=== PATIENT | female | born 1985 | race Caucasian/White ===

== ENCOUNTER 2019-06-29 22:00 | Inpatient (IN) | payer OTHER ==
[2019-06-29] MEDS ORDERED: ACETAMINOPHEN TAB 500 MG TAB PO STA (22:10)
[2019-06-29] MEDS ORDERED: IBUPROFEN 600 MG TAB PO STA (22:10)
[2019-06-29] MEDS ORDERED: IPRATROPIUM-ALBUTEROL 3 ML NEB INHALATION STA (22:11)
--- NOTE | 2019-06-29 22:13 | ED ---
SOB HPI - General Chief Complaint: Shortness of Breath Stated Complaint: EMILE Time Seen by Provider: 06/29/19 22:10 Source: EMS Mode of arrival: EMS Limitations: no limitations - History of Present Illness Initial Comments: Dorcas is a 33 yo female past medical history of opiate and amphetamine abuse who presents to the emergency department stay from [facility] facility for evaluation of pleuritic right-sided chest pain and upper respiratory i nfection. Patient was diagnosed with pneumonia a few days ago, she states that today was her fourth day of his Z-Justice, despite being compliant with his medication she has persistent cough, pleuritic chest pain, shortness of breath, fevers and body aches. - Related Data Home Medications Medication Instructions Recorded Confirmed Acetaminophen [Tylenol] 650 mg PO Q4H PRN 06/29/19 06/29/19 Ibuprofen [Motrin] 600 mg PO Q6HR PRN 06/29/19 06/29/19 Methadone [Dolophine] 103 mg PO DAILY 06/29/19 06/29/19 Mirtazapine [Remeron] 15 - 30 mg PO HS PRN 06/29/19 06/29/19 Multivitamins, Thera [Multivitamin 1 tab PO DAILY 06/29/19 06/29/19 (formulary)] Thiamine [Vitamin B-1] 100 mg PO DAILY 06/29/19 06/29/19 Allergies Allergy/AdvReac Type Severity Reaction Status Date / Time amoxicillin Allergy Rash/Hives Verified 06/29/19 23:32 Review of Systems ROS Statement: Those systems with pertinent positive or pertinent negative responses have been documented in the HPI. ROS Other: All systems not noted in ROS Statement are negative. Past Medical History Past Medical History: Asthma History of Any Multi-Drug Resistant Organisms: None Reported Past Surgical History: Tubal Ligation Additional Past Surgical History / Comment(s): lithotripsy, carpal surgery, Past Psychological History: No Psychological Hx Reported Smoking Status: Current every day smoker Past Alcohol Use History: None Reported Past Drug Use History: Methamphetamine, Opiates General Exam - General Exam Comments Initial Comments: Physical Exam GENERAL: Ill appearing HENT: Normocephalic, Atraumatic. EYES: PERRL, EOMI PULMONARY: decreased breath sounds on right wheeze throughout CARDIOVASCULAR: Tachycardic Regular No murmur ABDOMEN: Soft and nontender with normal bowel sounds. SKIN: Skin is clear with no lesions or rashes and otherwise unremarkable. No track jacobs in AC : Deferred NEUROLOGIC: Patient is alert and oriented x3. Moving all extremities spontaneously MUSCULOSKELETAL: Normal extremities with adequate strength and full range of motion. No lower extremity swelling or edema. No calf tenderness. PSYCHIATRIC: Normal psychiatric evaluation. Limitations: no limitations Course Vital Signs 06/29/19 06/29/19 06/29/19 22:02 22:26 22:37 Temperature 102 F H Pulse Rate 110 H 105 H 103 H Respiratory 18 Rate Blood Pressure 135/79 O2 Sat by Pulse 95 Oximetry 06/29/19 06/30/19 23:13 00:10 Temperature 99.2 F 99.6 F Pulse Rate 101 H 107 H Respiratory 18 18 Rate Blood Pressure 120/74 114/68 O2 Sat by Pulse 94 L 95 Oximetry Medical Decision Making - Medical Decision Making Patient was seen and evaluated, vital signs were reviewed, patient is tachypneic tachycardic and febrile with a known pneumonia. Sepsis workup was initiated Influenza swabs are obtained and sent chest x-ray confirms a right-sided pneumonia Labs with anemia, no leukocytosis, mildly elevated creatinine Given the patient's history, persistent tachycardia after antipyretics and fluids. A CT study was ordered to evaluate for any pulmonary emboli Computed tomography scan reveals bilateral pneumonia more prominent on the right than left, lymphadenopathy, no signs of a pulmonary embolism but find patient is ALLERGIC to amoxicillin she will be treated with Levaquin. Patient care was discussed with admitting physician Dr. Barrett Crowley who agrees with plan for admission. - Lab Data Result diagrams: 06/29/19 22:05 06/29/19 22:05 Lab Results 06/29/19 06/29/19 06/29/19 Range/Units 22:05 22:05 22:05 WBC 9.1 (3.8-10.6) k/uL RBC 3.84 (3.80-5.40) m/uL Hgb 10.0 L (11.4-16.0) gm/dL Hct 30.8 L (34.0-46.0) % MCV 80.2 (80.0-100.0) fL MCH 26.1 (25.0-35.0) pg MCHC 32.5 (31.0-37.0) g/dL RDW 14.5 (11.5-15.5) % Plt Count 287 (150-450) k/uL Neutrophils % 79 % Lymphocytes % 13 % Monocytes % 5 % Eosinophils % 2 % Basophils % 0 % Neutrophils # 7.1 (1.3-7.7) k/uL Lymphocytes # 1.2 (1.0-4.8) k/uL Monocytes # 0.5 (0-1.0) k/uL Eosinophils # 0.2 (0-0.7) k/uL Basophils # 0.0 (0-0.2) k/uL Hypochromasia Slight PT (9.0-12.0) sec INR (<1.2) APTT (22.0-30.0) sec Sodium 140 (137-145) mmol/L Potassium 3.8 (3.5-5.1) mmol/L Chloride 99 (98-107) mmol/L Carbon Dioxide 29 (22-30) mmol/L Anion Gap 12 mmol/L BUN 15 (7-17) mg/dL Creatinine 0.76 (0.52-1.04) mg/dL Est GFR (CKD-EPI)AfAm >90 (>60 ml/min/1.73 sqM) Est GFR (CKD-EPI)NonAf >90 (>60 ml/min/1.73 sqM) Glucose 101 H (74-99) mg/dL Plasma Lactic Acid Miguel 1.0 (0.7-2.0) mmol/L Calcium 9.1 (8.4-10.2) mg/dL Total Bilirubin 0.2 (0.2-1.3) mg/dL AST 35 (14-36) U/L ALT 48 (9-52) U/L Alkaline Phosphatase 114 (38-126) U/L Total Protein 7.0 (6.3-8.2) g/dL Albumin 3.8 (3.5-5.0) g/dL Influenza Type A RNA (Not Detectd) Influenza Type B (PCR) (Not Detectd) 06/29/19 06/29/19 Range/Units 22:05 22:36 WBC (3.8-10.6) k/uL RBC (3.80-5.40) m/uL Hgb (11.4-16.0) gm/dL Hct (34.0-46.0) % MCV (80.0-100.0) fL MCH (25.0-35.0) pg MCHC (31.0-37.0) g/dL RDW (11.5-15.5) % Plt Count (150-450) k/uL Neutrophils % % Lymphocytes % % Monocytes % % Eosinophils % % Basophils % % Neutrophils # (1.3-7.7) k/uL Lymphocytes # (1.0-4.8) k/uL Monocytes # (0-1.0) k/uL Eosinophils # (0-0.7) k/uL Basophils # (0-0.2) k/uL Hypochromasia PT 10.4 (9.0-12.0) sec INR 1.0 (<1.2) APTT 29.7 (22.0-30.0) sec Sodium (137-145) mmol/L Potassium (3.5-5.1) mmol/L Chloride (98-107) mmol/L Carbon Dioxide (22-30) mmol/L Anion Gap mmol/L BUN (7-17) mg/dL Creatinine (0.52-1.04) mg/dL Est GFR (CKD-EPI)AfAm (>60 ml/min/1.73 sqM) Est GFR (CKD-EPI)NonAf (>60 ml/min/1.73 sqM) Glucose (74-99) mg/dL Plasma Lactic Acid Miguel (0.7-2.0) mmol/L Calcium (8.4-10.2) mg/dL Total Bilirubin (0.2-1.3) mg/dL AST (14-36) U/L ALT (9-52) U/L Alkaline Phosphatase (38-126) U/L Total Protein (6.3-8.2) g/dL Albumin (3.5-5.0) g/dL Influenza Type A RNA Not Detected (Not Detectd) Influenza Type B (PCR) Not Detected (Not Detectd) - EKG Data -: EKG Interpreted by Me EKG Comments: EKG was obtained due to tachycardia, EKG was obtained at 2253, rate is 106 rhythm is sinus tachycardia, there is a normal axis, there are normal intervals, WV 132, care is 94, QTC is 451 there are no acute ST elevations or depressions no evidence of acute ischemia or infarction. Disposition Clinical Impression: Sepsis, Bilateral pneumonia Disposition: ADMITTED IP TO THIS HOSP Condition: Stable Is patient prescribed a controlled substance at d/c from ED?: No Referrals: None,Stated [Primary Care Provider] - 1-2 days
[2019-06-29] MEDS: SODIUM CHLORIDE 0.9% 500 ML 500 ML IV SCH ×2 (22:16→22:17)
[2019-06-29 22:27] LABS: Basophils % (A) 0 %; Eosinophils # (A) 0.2 k/uL (0-0.7); Eosinophils % (A) 2 %; HCT 30.8 % (34.0-46.0); Hypochromasia Slight; Lymphocytes # (A) 1.2 k/uL (1.0-4.8); Lymphocytes % (A) 13 %; MCH 26.1 pg (25.0-35.0); MCHC 32.5 g/dL (31.0-37.0); MCV 80.2 fL (80.0-100.0); Mean Platelet Volume 6.7; Monocytes # (A) 0.5 k/uL (0-1.0); Monocytes % (A) 5 %; Neutrophils # (A) 7.1 k/uL (1.3-7.7); Neutrophils % (A) 79 %; Platelet Count 287 k/uL (150-450); RBC 3.84 m/uL (3.80-5.40); RDW 14.5 % (11.5-15.5); WBC 9.1 k/uL (3.8-10.6)
[2019-06-29 22:35] LABS: Partial Thromboplastin Time 29.7 sec (22.0-30.0); Prothrombin Time 10.4 sec (9.0-12.0)
[2019-06-29 22:38] LABS: ALT 48 U/L (9-52); AST 35 U/L (14-36); African American GFR (CKD) >90 (>60 ml/min/1.73 sqM); Albumin 3.8 g/dL (3.5-5.0); Alkaline Phosphatase 114 U/L (38-126); Anion Gap 12 mmol/L; Blood Urea Nitrogen 15 mg/dL (7-17); Calcium 9.1 mg/dL (8.4-10.2); Carbon Dioxide 29 mmol/L (22-30); Chloride 99 mmol/L (98-107); Glucose 101 mg/dL (74-99); Potassium 3.8 mmol/L (3.5-5.1); Sodium 140 mmol/L (137-145); Total Bilirubin 0.2 mg/dL (0.2-1.3)
--- NOTE | 2019-06-29 22:47 | XR ---
EXAMINATION TYPE: XR chest 2V DATE OF EXAM: 06/29/2019 COMPARISON: NONE HISTORY: Cough TECHNIQUE: Frontal and lateral views of the chest are obtained. FINDINGS: There is some patchy airspace consolidation right middle lobe. The other lung lindsey are f airly clear of consolidation. There is minimal atelectasis right posterior lung base. Heart size is n ormal. There is no heart failure. There is no pleural effusion. IMPRESSION: There is some right middle lobe pneumonia. Minimal atelectasis right lower lobe.
--- NOTE | 2019-06-29 23:44 | CT ---
EXAMINATION TYPE: CT chest angio for PE DATE OF EXAM: 06/29/2019 COMPARISON: None HISTORY: EMILE CT DLP: 444.8 mGycm Automated exposure control for dose reduction was used. CONTRAST: CT Chest for pulmonary embolism performed with with IV Contrast, patient injected with 90mL mL of Iso diana 370. There are 3-D post processed images. FINDINGS: There is some patchy airspace consolidation right middle lobe and to a lesser extent the right lower lobe. There is a mild infiltrate also in the lingula left upper lobe. There is small right pleural ef fusion. Heart size is normal. There is no pericardial effusion. There are some enlarged mediastinal and bronchial lymph nodes that measure up to 2 cm. Bronchial lymp h nodes are larger on the right side. I see no filling defects in the pulmonary arteries. Bony thorax is intact. There is no compression fracture. The ribs appear intact. IMPRESSION: Bilateral pneumonia that is much worse on the right side. Mediastinal and bronchial adenopathy probab ly due to inflammatory disease. No evidence of pulmonary embolism.
[2019-06-29] MEDS ORDERED: LEVOFLOXACIN 750MG-D5W PMX 750 MG in DEXTROSE/WATER 1 150ML.BAG IVPB STA (23:50)
[2019-06-29] MEDS ORDERED: ONDANSETRON 4 MG/2 ML VIAL IVP PRN (23:51)
[2019-06-29] MEDS ORDERED: ACETAMINOPHEN TAB 325 MG TAB PO PRN (23:51)
[2019-06-29] MEDS ORDERED: NALOXONE 0.4 MG/ML 1 ML VIAL IV PRN (23:51)
[2019-06-29] MEDS ORDERED: IBUPROFEN 400 MG TAB PO PRN (23:51)
[2019-06-30] MEDS: SODIUM CHLORIDE 0.9% 1,000 ML IV SCH ×3 (00:20→20:26)
[2019-06-30] MEDS: SODIUM CHLORIDE 0.9% 500 ML 500 ML IV SCH (00:21)
[2019-06-30] MEDS ORDERED: MIRTAZAPINE 15 MG TAB PO PRN (06:59)
[2019-06-30] MEDS ORDERED: IBUPROFEN 600 MG TAB PO PRN (06:59)
--- NOTE | 2019-06-30 07:44 | HP ---
HISTORY AND PHYSICAL CHIEF COMPLAINT: A 33-year-old white female, history of opiate and amphetamine abuse, presents to the emergency room from [facility]. right-sided chest pain, upper respiratory infection, for pneumonia 3 days ago. She is on for V tach, has been compliant with medication. She has a cough, pleuritic chest pain, shortness of breath, fever, body aches. CAT scan of the chest shows bilateral pneumonia. HOME MEDS: Include methadone, Remeron, Motrin, Tylenol, multivitamins, thiamin. . 14 POINT REVIEW OF SYSTEMS: As mentioned above. Otherwise, negative. PAST MEDICAL HISTORY: Asthma, tubal ligation, lithotripsy, carpal tunnel surgery, current everyday smoker. PAST DRUG HISTORY: Methamphetamines, opiates. ALLERGIES: AMOXICILLIN. PHYSICAL EXAM: Vital signs stable, afebrile. CARDIOVASCULAR: S1, S2. LUNGS: Decreased breath sounds on the right, wheezes x4. PUPILS: Equal, round, react to light. HEAD: Normocephalic, atraumatic. ABDOMEN: Soft, nontender. SKIN: Warm, dry, no lesions. NEUROLOGIC: Alert and orient x3. PSYCH: Fair mood and affect. T-max 102 degrees Fahrenheit, pulse is in the low 100s, blood pressure 135/79, O2 is 95%. ASSESSMENT: 1. Bilateral pneumonia, more on the right than the left. There is some and possible restart azithromycin. Await for Pulmonary consult. 2. Acute on chronic anemia. 3. History of polysubstance abuse, transferred from [facility]. 4. Please home monitor with IV antibiotics. Influenza is negative. Sepsis protocol intact. EKG shows sinus tachycardia. No blood clot in the lung on CAT scan. 5. Sepsis, bilateral pneumonia. Continue on IV antibiotics. MMODL / IJN: [id number] /
[2019-06-30] MEDS: ALBUTEROL NEBULIZED 2.5 MG/3 ML INHALATION SCH ×2 (08:01→11:36)
[2019-06-30] MEDS: methylPREDNISolone SOD SUCCI 40 MG/ML 1 ML VIAL IV SCH ×2 (08:42→15:32)
[2019-06-30] MEDS: MULTIVITAMINS, THERA 1 EACH TAB PO SCH (08:42)
[2019-06-30] MEDS: METHADONE 10 MG TAB PO SCH (08:42)
[2019-06-30] MEDS: THIAMINE 100 MG TAB PO SCH (08:42)
[2019-06-30] MEDS ORDERED: AZITHROMYCIN 500 MG in SODIUM CHLORIDE 0.9% 250 ML IVPB SCH (09:00)
[2019-06-30] MEDS ORDERED: VANCOMYCIN IV PER PHARMACY 1 EACH MISC MISCELLANE PRN (12:01)
[2019-06-30] MEDS ORDERED: IPRATROPIUM-ALBUTEROL 3 ML NEB INHALATION PRN (12:02)
[2019-06-30] MEDS ORDERED: VANCOMYCIN 1,250 MG in SODIUM CHLORIDE 0.9% 250 ML IVPB SCH (13:00)
[2019-06-30] MEDS: IPRATROPIUM-ALBUTEROL 3 ML NEB INHALATION SCH ×2 (15:32→19:53)
--- NOTE | 2019-06-30 16:55 | P.CNPUL ---
History of Present Illness Consult date: 06/30/19 Reason for consult: pneumonia History of present illness: 33-year-old female patient known history of heroin whereas been clean about 3 months and known history of amphetamine abuse was admitted to [facility] for rehabilitation. The patient lives in [place] and has a very complicated psychosocial history. She is a chronic smoker. No history of any chronic lung disease or disorder. She admits that prior to her admitting [facility], she was having some increased cough and congestion. Subsequently she developed pleuritic chest pain on the right which was stabbing it was very sharp. She was having low-grade fever at her condition was getting worse. She was sent over to the hospital where she underwent a CT and a gram of the chest that showed an extensive right middle lobe/right lower lobe pneumonia and some patchy infiltrate on the left. She was started on a combination of antibiotics and a Port-A-Cath station was requested. There was no evidence of any pulmonary embolism. No reported aspiration. She is currently having a congested cough. Unable to bring up much sputum. No hemoptysis. No swelling lower extremities. No 70 cardiac disease. She has chronic insomnia on Remeron. Review of Systems Constitutional: Reports chronic pain, Reports fatigue, Reports fever, Reports poor appetite, Reports weakness Eyes: denies as per HPI, denies blurred vision, denies bulging eye, denies decreased vision, denies diplopia, denies discharge, denies dry eye, denies irritation, denies itching, denies pain, denies photophobia, denies loss of peripheral vision, denies loss of vision, denies tunnel vision/blind spots Ears: deny: decreased hearing, ear discharge, earache, tinnitus Ears, nose, mouth and throat: Denies headache, Denies sore throat Breasts: absent: as per HPI, change in shape, gynecomastia, masses, nipple discharge, pain, skin changes, swelling Cardiovascular: Reports decreased exercise tolerance, Reports dyspnea on exertion, Reports shortness of breath Respiratory: Reports cough, Reports cough with sputum, Reports dyspnea, Reports pain on inspiration, Reports wheezing Gastrointestinal: Reports as per HPI Genitourinary: Reports as per HPI Menstruation: Reports as per HPI Musculoskeletal: Reports as per HPI Musculoskeletal: absent: ankle pain, ankle stiffness, ankle swelling Integumentary: Denies pruritus, Denies rash Neurological: Reports as per HPI, Reports weakness Psychiatric: Reports as per HPI Endocrine: Reports as per HPI Hematologic/Lymphatic: Reports as per HPI Allergic/Immunologic: Reports as per HPI Past Medical History Past Medical History: Asthma, Renal Disease Additional Past Medical History / Comment(s): Substance abuse with IV heroin and methamphetamine use, history of childhood asthma, chronic smoker, Chronic back pain/prominent canal d/t epidurals per pt, chronic bilateral sciatica with L side worse, numbness/tingling hands/legs and feet, past migraines, IBS, nephrolithiasis with surgery, pt states she has not had a menses in at least one year. History of Any Multi-Drug Resistant Organisms: None Reported Past Surgical History: Orthopedic Surgery, Tubal Ligation Additional Past Surgical History / Comment(s): ureteral stents, lithotripsy, R carpal surgery, Past Anesthesia/Blood Transfusion Reactions: No Reported Reaction Smoking Status: Current every day smoker Past Drug Use History: Heroin, Methamphetamine - Past Family History Father History Unknown: Yes Family Medical History: Diabetes Mellitus (Diabetes in the mother) Additional Family Medical History / Comment(s): Pt does not keep in touch with her father. Mother Family Medical History: Diabetes Mellitus Additional Family Medical History / Comment(s): Mother is an alcoholic. Pt states she does not speak to her mother much. Medications and Allergies Home Medications Medication Instructions Recorded Confirmed Type Acetaminophen [Tylenol] 650 mg PO Q4H PRN 06/29/19 06/29/19 History Ibuprofen [Motrin] 600 mg PO Q6HR PRN 06/29/19 06/29/19 History Methadone [Dolophine] 103 mg PO DAILY 06/29/19 06/29/19 History Mirtazapine [Remeron] 15 - 30 mg PO HS PRN 06/29/19 06/29/19 History Multivitamins, Thera [Multivitamin 1 tab PO DAILY 06/29/19 06/29/19 History (formulary)] Thiamine [Vitamin B-1] 100 mg PO DAILY 06/29/19 06/29/19 History Allergies Allergy/AdvReac Type Severity Reaction Status Date / Time amoxicillin Allergy Rash/Hives Verified 06/29/19 23:32 Physical Exam Vitals: Vital Signs Temp Pulse Pulse Resp BP BP Pulse Ox 06/30/19 15:44 88 06/30/19 15:32 84 06/30/19 14:10 98.3 F 84 16 102/64 92 L 06/30/19 11:46 104 H 06/30/19 11:36 104 H 06/30/19 08:13 96 06/30/19 08:02 100 06/30/19 07:31 98.2 F 95 16 117/74 95 06/30/19 06:49 98.0 F 92 16 104/64 95 06/30/19 05:30 94 16 06/30/19 02:13 84 16 94 L 06/30/19 00:10 99.6 F 107 H 18 114/68 95 06/29/19 23:13 99.2 F 101 H 18 120/74 94 L 06/29/19 22:37 103 H 06/29/19 22:26 105 H 06/29/19 22:02 102 F H 110 H 18 135/79 95 Intake and Output 06/30/19 06/30/19 06/30/19 06:59 14:59 22:59 Intake Total 1250 540 Balance 1250 540 Intake: IV 1250 Azithromycin 500 mg In 250 Sodium Chloride 0.9% 250 ml @ 250 mls/hr IVPB DAILY [facility] Rx#:[id number] Levofloxacin 750Mg-D5w 150 Pmx 750 mg In Dextrose/ Water 1 150ml.bag @ 100 mls/hr IVPB Q24H [facility] Rx#: [id number] Sodium Chloride 0.9% 1, 800 000 ml @ 100 mls/hr IV . Q10H [facility] Rx#:[id number] cefTRIAXone 1 gm In 50 Sodium Chloride 0.9% 50 ml @ 100 mls/hr IVPB Q24H [facility] Rx#:[id number] Oral 540 Other: # Voids 4 The patient appeared well nourished and normally developed. Vital signs as documented. Head exam is unremarkable. No scleral icterus or corneal arcus noted. Neck is without jugular venous distension, thyromegaly, or carotid bruits. Carotid upstrokes are brisk bilaterally. Lungs diminished breath sounds along with scattered rhonchi and scattered external wheezes total lung his bilaterally. Crackles in the right lung base are quite extensive. Cardiac exam reveals the PMI to be normally sized and situated. Rhythm is regular. First and second heart sounds normal. No murmurs, rubs or gallops. Abdominal exam reveals normal bowel sounds, no masses, no organomegaly and no aortic enlargement. Extremities are nonedematous and both femoral and pedal pulses are normal.Examination of the skin revealed no evidence of significant rashes, suspicious appearing nevi or other concerning lesions. Several areas of skin popping due to previous heroin use. Neurologically is awake and alert and is no focal logical deficits. Results - Laboratory Findings CBC and BMP: 06/29/19 22:05 06/29/19 22:05 PT/INR, D-dimer PT 10.4 sec (9.0-12.0) 06/29/19 22:05 INR 1.0 (<1.2) 06/29/19 22:05 Abnormal lab findings: Abnormal Labs 06/29/19 06/29/19 22:05 22:05 Hgb 10.0 L Hct 30.8 L Glucose 101 H - Diagnostic Findings Chest x-ray: image reviewed CT scan - chest: image reviewed Assessment and Plan Plan: 1 multilobar pneumonia, mostly in the right middle/right lower lobe at the lesser extent on the left lung. 2 acute hypoxic respiratory failure secondary to above 3 childhood asthma 4 chronic smoker 5 history of IVDA in the form of heroin 6 history of amphetamine abuse 7 history of nephrolithiasis 8 pleuritic chest pain secondary to above 9 chronic pain Plan Obtain sputum Gram stain and culture. Obtain blood culture. Cover the patient with a combination of cefepime and vancomycin. When he to cover MRSA based on the previous history of drug use. Continue DuoNeb the right units [id number] every 4 times a day. Continue IV Solu Medrol. IV fluids with normal saline at the rate of 100 mL an hour. Repeat chest x-ray the morning. We'll continue to follow. Outpatient medication will be resumed including Remeron and methadone if possible.
[2019-06-30] MEDS: CEFEPIME 2 GM in SODIUM CHLORIDE 0.9% 100 ML IVPB SCH (20:26)
[2019-06-30] MEDS: ACETAMINOPHEN TAB 325 MG TAB PO PRN (20:35)
[2019-06-30] MEDS ORDERED: LEVOFLOXACIN 750MG-D5W PMX 750 MG in DEXTROSE/WATER 1 150ML.BAG IVPB SCH (21:00)
[2019-06-30] MEDS: VANCOMYCIN 1,250 MG in SODIUM CHLORIDE 0.9% 250 ML IVPB SCH (21:31)
--- NOTE | 2019-06-30 23:34 | P.CONS ---
History of Present Illness - Reason for Consult Consult date: 06/30/19 pneumonia Requesting physician: Barrett Crowley - Chief Complaint cough and chest pain x 3 weeks - History of Present Illness patient is a 33-year-old female currently undergoing rehabilitation at the [facility] for drug use, patient seen about a week after admission to the [facility] for rehabilitation she started having a cough and congestion, she was given some symptomatic treatment and recently completed a course of Z- Justice,however yesterday the patient started having the sharp chest pain on the penetrating to the back describing it to be almost 10 out of 10 in severity with associated shortness of breath, she did have a cough which is moderate in i ntensity and produc purulent sputum, with these symptoms the patient presented to the hospital on arrival she did have fever of 10 3F the patient was tachycardic, white count not significantly elevated, she did have a chest x-ray followed by CT angiogram, which did shows extensiv pneumonia patient was started on Rocephin and Zithromax vancomycin was added and infectious disease was consulted for further recommendations regarding antibiotics Review of Systems Positive points has been mentioned in HPI rest of the systems are negative Past Medical History Past Medical History: Asthma, Renal Disease Additional Past Medical History / Comment(s): Chronic back pain/prominent canal d/t epidurals per pt, chronic bilateral sciatica with L side worse, numbness/tingling hands/legs and feet, past migraines, IBS, nephrolithiasis with surgery, pt states she has not had a menses in at least one year. History of Any Multi-Drug Resistant Organisms: None Reported Past Surgical History: Orthopedic Surgery, Tubal Ligation Additional Past Surgical History / Comment(s): ureteral stents, lithotripsy, R carpal surgery, Past Anesthesia/Blood Transfusion Reactions: No Reported Reaction Smoking Status: Current every day smoker - Past Family History Father History Unknown: Yes Additional Family Medical History / Comment(s): Pt does not keep in touch with her father. Mother Family Medical History: Diabetes Mellitus Additional Family Medical History / Comment(s): Mother is an alcoholic. Pt states she does not speak to her mother much. Medications and Allergies Home Medications Medication Instructions Recorded Confirmed Type Acetaminophen [Tylenol] 650 mg PO Q4H PRN 06/29/19 06/29/19 History Ibuprofen [Motrin] 600 mg PO Q6HR PRN 06/29/19 06/29/19 History Methadone [Dolophine] 103 mg PO DAILY 06/29/19 06/29/19 History Mirtazapine [Remeron] 15 - 30 mg PO HS PRN 06/29/19 06/29/19 History Multivitamins, Thera [Multivitamin 1 tab PO DAILY 06/29/19 06/29/19 History (formulary)] Thiamine [Vitamin B-1] 100 mg PO DAILY 06/29/19 06/29/19 History Allergies Allergy/AdvReac Type Severity Reaction Status Date / Time amoxicillin Allergy Rash/Hives Verified 06/29/19 23:32 Physical Exam Vitals: Vital Signs Temp Pulse Pulse Resp BP BP Pulse Ox 06/30/19 11:46 104 H 06/30/19 11:36 104 H 06/30/19 08:13 96 06/30/19 08:02 100 06/30/19 07:31 98.2 F 95 16 117/74 95 06/30/19 06:49 98.0 F 92 16 104/64 95 06/30/19 05:30 94 16 06/30/19 02:13 84 16 94 L 06/30/19 00:10 99.6 F 107 H 18 114/68 95 06/29/19 23:13 99.2 F 101 H 18 120/74 94 L 06/29/19 22:37 103 H 06/29/19 22:26 105 H 06/29/19 22:02 102 F H 110 H 18 135/79 95 Intake and Output 06/29/19 06/30/19 06/30/19 22:59 06:59 14:59 Intake Total 1250 Balance 1250 Intake: IV 1250 Azithromycin 500 mg In 250 Sodium Chloride 0.9% 250 ml @ 250 mls/hr IVPB DAILY [facility] Rx#:[id number] Levofloxacin 750Mg-D5w 150 Pmx 750 mg In Dextrose/ Water 1 150ml.bag @ 100 mls/hr IVPB Q24H [facility] Rx#: [id number] Sodium Chloride 0.9% 1, 800 000 ml @ 100 mls/hr IV . Q10H [facility] Rx#:[id number] cefTRIAXone 1 gm In 50 Sodium Chloride 0.9% 50 ml @ 100 mls/hr IVPB Q24H [facility] Rx#:[id number] Other: Weight 72.575 kg GENERAL DESCRIPTION: Middle-aged female lying in bed, no distress. No tachypnea or accessory muscle of respiration use. HEENT: Shows Pallor , no scleral icterus. Oral mucous membrane is dry. No pharyngeal erythema or thrush NECK: Trachea central, no thyromegaly. LUNGS: Unlabored breathing. course breath sounds bilaterally with expiratory wheeze . HEART: S1, S2, regular rate and rhythm. No loud murmur ABDOMEN: Soft, no tenderness , guarding or rigidity, no organomegaly EXTREMITIES: No edema of feet. SKIN: No rash, no masses palpable. NEUROLOGICAL: The patient is awake, alert, oriented x3, mood and affect normal. Results CBC & Chem 7: 06/29/19 22:05 06/29/19 22:05 Labs: Abnormal Lab Results - Last 24 Hours (Table) 06/29/19 06/29/19 Range/Units 22:05 22:05 Hgb 10.0 L (11.4-16.0) gm/dL Hct 30.8 L (34.0-46.0) % Glucose 101 H (74-99) mg/dL Assessment and Plan Assessment: Patient presented to hospital with sepsis in this patient who did have fever tachycardia cirrhosis extensive pneumonia most of the right side that has failed outpatient oral Zithromax therapy and the patient currently undergoing rehab for drug addiction with concern for possible resistant gram-positive or gram- negative infection (1) Bilateral pneumonia Current Visit: Yes Status: Acute Code(s): J18.9 - PNEUMONIA, UNSPECIFIED ORGANISM SNOMED Code(s): 111235211 (2) Sepsis Current Visit: Yes Status: Acute Code(s): A41.9 - SEPSIS, UNSPECIFIED ORGANISM SNOMED Code(s): 54670982 Plan: 1-we will try to obtain sputum for Gram stain and culture 2-check urine for Legionella antigen 3--vancomycin pharmacy to dose target trough of 15 while watching her kidney function and Vanco trough closely 4-discontinue the Rocephin and start the patient cefepime 2 g every 12 hours we will follow on clinical condition and culture to further adjust medication if needed Thank you for this consultation will follow this patient along with you Time with Patient: Greater than 30
[2019-07-01] MEDS: methylPREDNISolone SOD SUCCI 40 MG/ML 1 ML VIAL IV SCH ×3 (00:09→15:27)
[2019-07-01] MEDS: SODIUM CHLORIDE 0.9% 1,000 ML IV SCH ×2 (04:58→13:15)
[2019-07-01] MEDS: guaiFENesin-DM 100-10MG/5ML 10 ML CUP PO PRN ×2 (05:02→20:43)
[2019-07-01] MEDS: VANCOMYCIN 1,250 MG in SODIUM CHLORIDE 0.9% 250 ML IVPB SCH ×3 (05:03→22:24)
[2019-07-01 07:08] LABS: African American GFR (CKD) >90 (>60 ml/min/1.73 sqM); Anion Gap 12 mmol/L; Blood Urea Nitrogen 12 mg/dL (7-17); Calcium 9.3 mg/dL (8.4-10.2); Carbon Dioxide 23 mmol/L (22-30); Chloride 106 mmol/L (98-107); Glucose 151 mg/dL (74-99); Potassium 4.2 mmol/L (3.5-5.1); Sodium 141 mmol/L (137-145)
[2019-07-01] MEDS: IPRATROPIUM-ALBUTEROL 3 ML NEB INHALATION SCH ×4 (07:33→19:13)
[2019-07-01] MEDS: THIAMINE 100 MG TAB PO SCH (08:06)
[2019-07-01] MEDS: CEFEPIME 2 GM in SODIUM CHLORIDE 0.9% 100 ML IVPB SCH ×2 (08:06→20:44)
[2019-07-01] MEDS: MULTIVITAMINS, THERA 1 EACH TAB PO SCH (08:06)
[2019-07-01] MEDS: METHADONE 10 MG TAB PO SCH (08:07)
[2019-07-01] MEDS ORDERED: AZITHROMYCIN 500 MG TAB PO SCH (09:00)
[2019-07-01] MEDS: ACETAMINOPHEN TAB 325 MG TAB PO PRN (17:25)
--- NOTE | 2019-07-01 18:22 | P.PN ---
Subjective Progress Note Date: 07/01/19 33-year-old female patient known history of heroin whereas been clean about 3 m onths and known history of amphetamine abuse was admitted to [facility] for rehabilitation. The patient lives in [place] and has a very complicated psychosocial history. She is a chronic smoker. No history of any chronic lung disease or disorder. She admits that prior to her admitting septal [facility], she was having some increased cough and congestion. Subsequently she developed pleuritic chest pain on the right which was stabbing it was very sharp. She was having low-grade fever at her condition was getting worse. She was sent over to the hospital where she underwent a CT and a gram of the chest that showed an extensive right middle lobe/right lower lobe pneumonia and some patchy infiltrate on the left. She was started on a combination of antibiotics and a Port-A-Cath station was requested. There was no evidence of any pulmonary embolism. No reported aspiration. She is currently having a congested cough. Unable to bring up much sputum. No hemoptysis. No swelling lower extremities. No 70 cardiac disease. She has chronic insomnia on Remeron. On today's evaluation of 07/01/2019, the patient is less short of breath less bronchospastic and wheezy. Her chest soreness is improved compared to yesterday. Blood cultures negative. Sputum cultures negative. She is on a combination of IV cefepime and vancomycin for now. No nausea. No vomiting. No abdominal pain. No other complaints otherwise for now. She is being treated for multilobar pneumonia. Objective - Vital Signs Vital signs: Vital Signs Temp 98.2 F 07/01/19 14:37 Pulse 80 07/01/19 14:56 Resp 16 07/01/19 14:37 BP 108/67 07/01/19 14:37 Pulse Ox 97 07/01/19 14:37 Intake & Output 06/30/19 07/01/19 07/01/19 18:59 06:59 18:59 Intake Total 2330 800 1450 Balance 2330 800 1450 Intake: IV 1250 1450 Azithromycin 500 mg In 250 250 Sodium Chloride 0.9% 250 ml @ 250 mls/hr IVPB DAILY [facility] Rx#:[id number] Cefepime 2 gm In Sodium 100 Chloride 0.9% 100 ml @ 200 mls/hr IVPB Q12HR [facility] Rx#:[id number] Levofloxacin 750Mg-D5w 150 Pmx 750 mg In Dextrose/ Water 1 150ml.bag @ 100 mls/hr IVPB Q24H [facility] Rx#: [id number] Sodium Chloride 0.9% 1, 800 800 000 ml @ 100 mls/hr IV . Q10H [facility] Rx#:[id number] Vancomycin 1,250 mg In 250 Sodium Chloride 0.9% 250 ml @ 125 mls/hr IVPB Q12HR [facility] Rx#:[id number] cefTRIAXone 1 gm In 50 50 Sodium Chloride 0.9% 50 ml @ 100 mls/hr IVPB Q24H [facility] Rx#:[id number] Oral 1080 800 Other: # Voids 4 2 - Exam The patient appeared well nourished and normally developed. Vital signs as documented. Head exam is unremarkable. No scleral icterus or corneal arcus noted. Neck is without jugular venous distension, thyromegaly, or carotid bruits. Carotid upstrokes are brisk bilaterally. Lungs diminished breath sounds along with scattered rhonchi and scattered external wheezes total lung his bilaterally. Crackles in the right lung base are quite extensive. Cardiac exam reveals the PMI to be normally sized and situated. Rhythm is regular. First and second heart sounds normal. No murmurs, rubs or gallops. Abdominal exam reveals normal bowel sounds, no masses, no organomegaly and no aortic enlargement. Extremities are nonedematous and both femoral and pedal pulses are normal.Examination of the skin revealed no evidence of significant rashes, suspicious appearing nevi or other concerning lesions. Several areas of skin popping due to previous heroin use. Neurologically is awake and alert and is no focal logical deficits. - Labs CBC & Chem 7: 06/29/19 22:05 07/01/19 06:30 Labs: Abnormal Lab Results - Last 24 Hours (Table) 07/01/19 Range/Units 06:30 Glucose 151 H (74-99) mg/dL Microbiology - Last 24 Hours (Table) 07/01/19 00:08 Gram Stain - Preliminary Sputum 06/29/19 22:36 Blood Culture - Preliminary Blood No Growth after 24 hours Assessment and Plan Plan: 1 multilobar pneumonia, mostly in the right middle/right lower lobe at the lesser extent on the left lung. 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 Continue same antibiotic coverage. Clinically improving. Continue cefepime and vancomycin. Continue bronchodilators. Continue steroids. No active issues for now. Ongoing improvement and no active issues or concerns in regards to treatment of multilobar pneumonia. pleuritic chest pain is also improved.
--- NOTE | 2019-07-01 19:36 | PN ---
PROGRESS NOTE DATE OF SERVICE: 07/01/2019. REASON FOR FOLLOWUP: Pneumonia with sepsis. INTERVAL HISTORY: The patient is currently afebrile. The patient has been breathing comfortably. The patient right-sided chest pain has improved. Still has a cough but bringing up less sputum. No hemoptysis. No nausea, no vomiting. No abdominal pain. No diarrhea. PHYSICAL EXAMINATION: Blood pressure is 108/67 with a pulse of 76, temperature 98.2. She is 97% on room air. General description is a middle-aged female up in the chair in no distress. Respiratory system: Unlabored breathing. Some coarse breath sounds on the right side with wheezing. Heart S1, S2. Regular rate and rhythm. Abdomen soft, no tenderness. Extremities: No edema of the feet. LABS: Hemoglobin is 10 with white count 9.1, creatinine 0.56. Sputum culture currently pending. Blood cultures so far negative. DIAGNOSTIC IMPRESSION AND PLAN: Patient admitted to the hospital with sepsis. This patient did have evidence of bilateral pneumonia failing outpatient with Zithromax therapy. The patient is currently covered with cefepime and vancomycin to continue while waiting for the culture to finalize to determine discharge antibiotics. Continue supportive care. MMODL / IJN: [id number] /
[2019-07-02] MEDS: SODIUM CHLORIDE 0.9% 1,000 ML IV SCH ×2 (03:44→12:44)
[2019-07-02] MEDS ORDERED: VANCOMYCIN TROUGH DUE 1 EACH MISC MISCELLANE ONE (05:00)
[2019-07-02] MEDS: VANCOMYCIN 1,250 MG in SODIUM CHLORIDE 0.9% 250 ML IVPB SCH (06:10)
[2019-07-02] MEDS: methylPREDNISolone SOD SUCCI 40 MG/ML 1 ML VIAL IV SCH ×3 (07:31→15:10)
[2019-07-02] MEDS: MULTIVITAMINS, THERA 1 EACH TAB PO SCH (07:31)
[2019-07-02] MEDS: METHADONE 10 MG TAB PO SCH (07:32)
[2019-07-02] MEDS: CEFEPIME 2 GM in SODIUM CHLORIDE 0.9% 100 ML IVPB SCH (07:32)
[2019-07-02] MEDS: THIAMINE 100 MG TAB PO SCH (07:32)
[2019-07-02] MEDS: IPRATROPIUM-ALBUTEROL 3 ML NEB INHALATION SCH ×3 (07:36→15:37)
[2019-07-02 08:00] VITALS: RESP 16
--- NOTE | 2019-07-02 13:54 | P.PN ---
Subjective Progress Note Date: 07/02/19 Principal diagnosis: Multilobar pneumonia involving the right middle and right lower lobe, and to lesser extent in the left lung 33-year-old female patient known history of heroin whereas been clean about 3 months and known history of amphetamine abuse was admitted to [facility] for rehabilitation. The patient lives in [place] and has a very complicated psychosocial history. She is a chronic smoker. No history of any chronic lung disease or disorder. She admits that prior to her admitting septal [facility], she was having some increased cough and congestion. Subsequently she developed pleuritic chest pain on the right which was stabbing it was very sharp. She was having low-grade fever at her condition was getting worse. She was sent over to the hospital where she underwent a CT and a gram of the chest that showed an extensive right middle lobe/right lower lobe pneumonia and some patchy infiltrate on the left. She was started on a combination of antibiotics and a Port-A-Cath station was requested. There was no evidence of any pulmonary embolism. No reported aspiration. She is currently having a congested cough. Unable to bring up much sputum. No hemoptysis. No swelling lower extremities. No 70 cardiac disease. She has chronic insomnia on Remeron. On today's evaluation of 07/01/2019, the patient is less short of breath less bronchospastic and wheezy. Her chest soreness is improved compared to yesterday. Blood cultures negative. Sputum cultures negative. She is on a combination of IV cefepime and vancomycin for now. No nausea. No vomiting. No abdominal pain. No other complaints otherwise for now. She is being treated for multilobar pneumonia. On 07/02/2019 she seen in follow-up in medical surgical unit, she is awake and alert, she is in no acute distress. She is tolerating ambulation, she states her breathing has much improved, less wheezy, less dyspneic. Vital signs are stable, no fever or chills, no chest wall tenderness, room air pulse ox of 96%, lens urine cultures were negative. Patient has been treated with IV steroids, cefepime and vancomycin, clinically improved. Objective - Vital Signs Vital signs: Vital Signs Temp 98.2 F 07/02/19 07:15 Pulse 78 07/02/19 07:15 Resp 16 07/02/19 07:15 BP 135/86 07/02/19 07:15 Pulse Ox 96 07/02/19 07:15 Intake & Output 07/01/19 07/02/19 07/02/19 18:59 06:59 18:59 Intake Total 1989 1115 1050 Balance 1989 1115 1050 Intake: IV 1450 1050 Azithromycin 500 mg In 250 Sodium Chloride 0.9% 250 ml @ 250 mls/hr IVPB DAILY [facility] Rx#:[id number] Cefepime 2 gm In Sodium 100 Chloride 0.9% 100 ml @ 200 mls/hr IVPB Q12HR [facility] Rx#:[id number] Sodium Chloride 0.9% 1, 800 800 000 ml @ 100 mls/hr IV . Q10H [facility] Rx#:[id number] Vancomycin 1,250 mg In 250 Sodium Chloride 0.9% 250 ml @ 125 mls/hr IVPB Q12HR [facility] Rx#:[id number] Vancomycin 1,250 mg In 250 Sodium Chloride 0.9% 250 ml @ 125 mls/hr IVPB Q8H [facility] Rx#:[id number] cefTRIAXone 1 gm In 50 Sodium Chloride 0.9% 50 ml @ 100 mls/hr IVPB Q24H [facility] Rx#:[id number] Oral 540 1115 Other: Voiding Method Toilet # Voids 4 1 2 - Exam GENERAL EXAM: Alert, pleasant, 33-year-old white female, on room air pulse ox of 96%, comfortable in no apparent distress. HEAD: Normocephalic/atraumatic. EYES: Normal reaction of pupils, equal size. Conjunctiva pink, sclera white. NOSE: Clear with pink turbinates. THROAT: No erythema or exudates. NECK: No masses, no JVD, no thyroid enlargement, no adenopathy. CHEST: No chest wall deformity. Symmetrical expansion. LUNGS: Equal air entry with minimal wheezes, but no rhonchi or dullness. CVS: Regular rate and rhythm, normal S1 and S2, no gallops, no murmurs, no rubs ABDOMEN: Soft, nontender. No hepatosplenomegaly, normal bowel sounds, no guarding or rigidity. EXTREMITIES: No clubbing, no edema, no cyanosis, 2+ pulses and upper and lower extremities. MUSCULOSKELETAL: Muscle strength and tone normal. SPINE: No scoliosis or deformity SKIN: No rashes CENTRAL NERVOUS SYSTEM: Alert and oriented -3. No focal deficits, tone is normal in all 4 extremities. PSYCHIATRIC: Alert and oriented -3. Appropriate affect. Intact judgment and insight. - Labs CBC & Chem 7: 06/29/19 22:05 07/01/19 06:30 Labs: Microbiology - Last 24 Hours (Table) 06/29/19 22:36 Blood Culture - Preliminary Blood No Growth after 48 hours 07/01/19 00:08 Gram Stain - Preliminary Sputum Assessment and Plan Plan: Assessment: 1 multilobar pneumonia, mostly in the right middle/right lower lobe at the lesser extent on the left lung. 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 She will need follow-up chest x-ray in a couple weeks, however it is unclear which area patient will be going on to next phase of drug rehabilitation, she states she will go to [place] 3/4 house after discharge. I performed a history & physical examination of the patient and discussed their management with my nurse practitioner, Rosalee Davis. I reviewed the nurse practitioner's note and agree with the documented findings and plan of care. Lung sounds are positive for minimal wheezes. The findings and the impression was discussed with the patient. I attest to the documentation by the nurse practitioner. Time with Patient: Less than 30
[2019-07-02] MEDS ORDERED: VANCOMYCIN 1,500 MG in SODIUM CHLORIDE 0.9% 250 ML IVPB SCH (14:00)
--- NOTE | 2019-07-02 14:03 | PN ---
PROGRESS NOTE DATE OF SERVICE: 07/02/2019 REASON FOR FOLLOWUP: Pneumonia. INTERVAL HISTORY: The patient is currently afebrile. The patient is breathing more comfortably. The patient's right-sided chest pain resolved. Cough has decreased in intensity, sputum. No nausea, no vomiting. No abdominal pain and no diarrhea. PHYSICAL EXAMINATION: On examination, blood pressure is 135/86, pulse of 78, temperature 98.2. She is 96% on room air. General description is a middle-aged female up in the room in no distress. RESPIRATORY SYSTEM: Unlabored breathing, decreased breath sounds. No wheeze. HEART: S1, S2. Regular rate and rhythm. ABDOMEN: Soft, no tenderness. LABS: BUN of 12, creatinine 0.56. Sputum so far negative for any resistant pathogen. DIAGNOSTIC IMPRESSION AND PLAN: Patient admitted to the hospital with pneumonia with concern for possible community- acquired, so far no has been grown. Blood culture negative. The patient is insisting on going home. Discharge antibiotic in the form of Levaquin. Close outpatient followup. MMODL / IJN: [id number] /
[2019-07-02 14:11] VITALS: BP 128/70; PULSE 70; TEMP 97.9
== END 2019-07-02 16:42 | disposition home or self-care (01) | DRG 871 ==
LOC: EC 22:00 → 4MS4W 23:51
PROVIDERS: ADMIT Family Medicine; ATTEND Family Medicine
DX: A41.9 Sepsis, unspecified organism (principal); J18.1 Lobar pneumonia, unspecified organism; J96.01 Acute respiratory failure with hypoxia; I47.2 Ventricular tachycardia; D64.9 Anemia, unspecified; F17.200 Nicotine dependence, unspecified, uncomplicated; F51.04 Psychophysiologic insomnia; G89.29 Other chronic pain; K58.9 Irritable bowel syndrome, unspecified; G43.909 Migraine, unspecified, not intractable, without status migrainosus; M54.31 Sciatica, right side; M54.32 Sciatica, left side; M54.9 Dorsalgia, unspecified; R07.81 Pleurodynia; Z88.0 Allergy status to penicillin; Z87.442 Personal history of urinary calculi; Z79.899 Other long term (current) drug therapy; Z98.51 Tubal ligation status; Z87.09 Personal history of other diseases of the respiratory system; Z81.1 Family history of alcohol abuse and dependence; Z83.3 Family history of diabetes mellitus
CPT/HCPCS: 36415; 71046; 71275; 80048; 80053; 80202; 83605; 85025; 85610; 85730; 87040; 87070; 87205; 87502; 93005; 94640; 94760; 96361; 96365; 99285